=== PATIENT | female | born 1930 | race Caucasian/White ===

== ENCOUNTER 2017-05-31 06:44 | Emergency (ER) | payer OTHER ==
[~2017-05-31] VITALS: Ht 157.5 cm; Wt 77.1 kg
[~2017-05-31 06:44] MED LIST: BENICAR20 MG; CEFTIN250 MG PO; CRESTOR20 MG; DOLOGESIC CAPLE1 TAB PO; IMDUR30 MG; NABUMETONE750 MG PO; NIFEDICAL30 MG/BOTT; PLAVIX75 MG
[2017-05-31] MEDS ORDERED: PLAVIX75 MG (07:03)
[2017-05-31] MEDS ORDERED: LIPITOR20 MG (07:03)
[2017-05-31] MEDS ORDERED: ASPIR 8181 MG (07:03)
[2017-05-31] MEDS ORDERED: DILTIAZEM100 MG/100 (07:04)
[2017-05-31] MEDS ORDERED: SYNTHROID150 MCG (07:05)
== END 2017-05-31 14:15 | disposition home or self-care (01) ==
LOC: ER 06:44
DX: S32.592A Other specified fracture of left pubis, initial encounter for closed fracture (principal); S32.512A Fracture of superior rim of left pubis, initial encounter for closed fracture; S50.02XA Contusion of left elbow, initial encounter; S49.92XA Unspecified injury of left shoulder and upper arm, initial encounter; M12.522 Traumatic arthropathy, left elbow; R11.0 Nausea; R53.81 Other malaise; W01.198A Fall on same level from slipping, tripping and stumbling with subsequent striking against other object, initial encounter; Y93.E8 Activity, other personal hygiene; Y92.012 Bathroom of single-family (private) house as the place of occurrence of the external cause; Y99.8 Other external cause status

== ENCOUNTER 2017-06-06 11:27 | Inpatient (IN) | payer OTHER ==
[~2017-06-06] VITALS: Ht 170.2 cm; Wt 79.4 kg
[~2017-06-06 11:27] MED LIST changes: +ASPIR 8181 MG; +DILTIAZEM100 MG/100; +LIPITOR20 MG; +SYNTHROID150 MCG
[2017-06-06] MEDS ORDERED: INDUR (12:29)
== END 2017-06-07 22:00 | disposition expired | DRG 309 ==
LOC: ER 11:27 → ICU-2 14:10
PROC: 4A033R1 Measurement of Arterial Saturation, Peripheral, Percutaneous Approach (ICD-10-PCS; principal; 2017-06-06)
PROC: BW21Y0Z Computerized Tomography (CT Scan) of Abdomen and Pelvis using Other Contrast, Unenhanced and Enhanced (ICD-10-PCS; 2017-06-06)
PROC: BT43ZZZ Ultrasonography of Bilateral Kidneys (ICD-10-PCS; 2017-06-06)
PROC: 5A1935Z Respiratory Ventilation, Less than 24 Consecutive Hours (ICD-10-PCS; 2017-06-07)
PROC: 0BH17EZ Insertion of Endotracheal Airway into Trachea, Via Natural or Artificial Opening (ICD-10-PCS; 2017-06-07)
DX: I48.0 Paroxysmal atrial fibrillation (principal); N17.8 Other acute kidney failure; E87.2 Acidosis; I95.89 Other hypotension; I46.2 Cardiac arrest due to underlying cardiac condition